=== PATIENT | male | born 1955 | race Caucasian/White ===

== ENCOUNTER 2022-09-22 10:15 | Outpatient (RCR) | payer BC, SELFPAY | END 2022-09-23 14:44 | disposition home or self-care (01) | PROVIDERS: PCP Family Medicine; Visit Provider Physician Assistant Medical | DX: Z96.642 Presence of left artificial hip joint (principal); Z51.89 Encounter for other specified aftercare | CPT/HCPCS: 97110; 97112; 97116; 97140; 97162 ==